=== PATIENT | female | born 1980 | race Caucasian/White ===

== ENCOUNTER → 2021-06-06 10:21 | Outpatient (CLI) | payer OTHER, SELFPAY ==
[2021-06-06 10:42] LABS: Add Manual Diff / Slide Review NO; Basophils Absolute Auto 100 /uL (0-100); Basophils Percent Auto 2.6 % (0-2); Eosinophils Absolute Auto 100 /uL (0-450); Eosinophils Percent Auto 1.4 % (2-4); Hematocrit 36.4 % (36-46); Hemoglobin 12.2 g/dL (12.0-16.0); Lymphocytes Absolute Auto 1600 /uL (1100-4500); Mean Corpuscular HGB Conc 33.5 % (30-36); Mean Corpuscular Hemoglobin 29.1 PG (26-34); Mean Corpuscular Volume 86.7 fL (80-100); Monocytes Absolute Auto 200 /uL (0-900); Monocytes Percent Auto 6.2 % (3-14); Neutrophils Absolute Auto 1700 /uL (1500-7000); Neutrophils Percent Auto 45.8 % (50-75); Platelet Count 221 X10^3/uL (150-400); Red Cell Distribution Width 13.6 % (11.6-14.8); White Blood Cell Count 3.7 X10^3/uL (4.5-11.0)
[2021-06-06 11:01] LABS: Alanine Aminotransferase 13 IU/L (<35); Albumin 4.5 g/dL (3.5-5.0); Albumin Globulin Ratio 1.4 (1.0-2.8); Alkaline Phosphatase 46 U/L (38-126); Aspartate Aminotransferase 22 IU/L (14-36); BUN Creatinine Ratio 26.4 (6-22); Bilirubin Total 1.8 mg/dL (0.2-1.3); Blood Urea Nitrogen 19 mg/dL (7-17); Calcium 9.1 mg/dL (8.4-10.2); Carbon Dioxide 29 mmol/L (22-32); Chloride 103 mmol/L (98-107); Cholesterol 222 mg/dL (140-199); Estimated Glomerular Filt Rate > 60.0 mL/min (>60); Globulin 3.3 g/dL (1.7-4.1); Glucose 99 mg/dL (70-100); HEMOLYSIS < 15 (0-50); Sodium 140 mmol/L (137-145); Total Protein 7.8 g/dL (6.3-8.2); Triglycerides 53 mg/dL (35-150)
[2021-06-06 11:09] LABS: HDL Cholesterol 113 mg/dL (40-60); LDL Cholesterol Calculated 98 mg/dL (<100)
[2021-06-06 11:23] LABS: TSH w/ Reflex to FT4 2.82 uIU/mL (0.47-4.68)
== END ==
PROVIDERS: PCP Family Medicine; Referring Provider Family Medicine; Visit Provider Family Medicine
DX: E78.5 Hyperlipidemia, unspecified (principal); D64.9 Anemia, unspecified; R53.83 Other fatigue
CPT/HCPCS: 36415; 80053; 80061; 84443; 85025

== ENCOUNTER 2021-08-04 19:11 | Emergency (ER) | payer SELFPAY ==
--- NOTE | 2021-08-04 19:37 | ED.GENADULT ---
HPI - General Adult General Chief complaint: Recheck/Abnormal Lab/Rx Stated complaint: TESTED FOR BLOOD WORK POKED BY NEEDLE WITH NURSE Time Seen by Provider: 08/04/21 19:16 Source: patient Mode of arrival: Ambulatory Limitations: no limitations History of Present Illness HPI narrative: This is a 41-year-old female who was the source patient for a needle that had a blood exposure at a dental office earlier today. The office called and sent patient here for source testing. Patient said she had testing a month ago was negative at that time. She is agreeable to testing today. She defers waiting for her results at this moment and we discussed that some of them will be back today some will take several days to week to result. We did confirm her phone number for follow-up and encouraged her to also call here if she would like for her results. Related Data Home Medications Medication Instructions Recorded Confirmed multivitamin 1 tab PO DAILY 06/06/21 06/06/21 Allergies Allergy/AdvReac Type Severity Reaction Status Date / Time No Known Drug Allergies Allergy Verified 06/06/21 09:48 Review of Systems Review of Systems ROS Unobtainable: All systems reviewed & are unremarkable except as noted in HPI and below Patient History Medical History Acne Anemia, unspecified Fatigue Scoliosis (~1991) Surgical History Anesthesia History of breast lump removal (~2006) Family History Mother Hypertension Grandmother Cancer Social History Smoking Status: Never smoker Smoking Status: Never smoker Exam Narrative Exam Narrative: GENERAL: Alert and oriented x three, female distress. HEENT: Head normocephalic, atraumatic, EOMI, pupils reactive, face symmetric, moist mucous membranes NECK: Supple, full range of motion EXTREMITIES: Normal range of motion, normal gait. NEUROLOGICAL: Cranial nerves II through XII grossly intact. Moving all extremities SKIN: Warm, dry, no petechiae, no rashes or lesions. Course Orders Ordered: ED Orders 08/04/21 19:16 Alanine Aminotransferase Stat HIV 1 & 2 Ab/Ag 4th Gen Combo Stat Hep C Virus Ab w/Reflex Quant Stat 08/04/21 19:19 HIV 1/2 QUAL RNA Stat Medical Decision Making Lab Data Labs: Lab Results 08/04/21 08/04/21 08/04/21 Range/Units 19:40 19:40 19:40 ALT 14 (<35) IU/L Hep Bs Antibody Reactive (.) Hepatitis C Antibody Negative (NEGATIVE) s/c HIV-1 RNA (PCR) (Non Reactive) HIV 1&2 Ab/P24 Ag 4thGn Negative (NEGATIVE) HIV-2 RNA Qual (RT-PCR) (Non Reactive) 08/04/21 Range/Units 19:40 ALT (<35) IU/L Hep Bs Antibody (.) Hepatitis C Antibody (NEGATIVE) s/c HIV-1 RNA (PCR) Non reactive (Non Reactive) HIV 1&2 Ab/P24 Ag 4thGn (NEGATIVE) HIV-2 RNA Qual (RT-PCR) Non reactive (Non Reactive) MDM Narrative Medical decision making narrative: This is a 41-year-old female presents for exposure panel testing as the source patient from an outside dental office. Discharge Plan Departure Patient Disposition: Home Clinical Impression: Patient requested test Activity Restrictions/Additional Instructions: Thank you for presenting today for blood draw as a source patient for blood exposure. Your labs are currently pending. If positive you will be contacted or you can call in the next 48 hours for final results. Please return for new or concerning findings. Prescriptions: No Action multivitamin Tablet 1 tab PO DAILY Referrals: Renuka Lai MD [Primary Care Provider] - Visit Report Forms: Patient Portal/API
[2021-08-04 20:05] LABS: Alanine Aminotransferase 14 IU/L (<35)
[2021-08-04 21:25] LABS: HIV 1 & 2 Ab/Ag 4th Gen Combo NEGATIVE (NEGATIVE); Hep C Virus Ab w/Reflex Quant NEGATIVE s/c (NEGATIVE)
[2021-08-06 09:01] LABS: Hepatitis B Surf Ab Qualitativ Reactive (.)
[2021-08-07 12:13] LABS: HIV 1 RNA Non Reactive (Non Reactive); HIV 2 RNA Non Reactive (Non Reactive)
== END 2021-08-04 19:48 | disposition home or self-care (01) ==
PROVIDERS: Emergency Provider Emergency Medicine; PCP Family Medicine
DX: Z77.21 Contact with and (suspected) exposure to potentially hazardous body fluids (principal); W46.1XXA Contact with contaminated hypodermic needle, initial encounter; Y92.531 Health care provider office as the place of occurrence of the external cause
CPT/HCPCS: 36415; 84460; 86706; 86803; 87389; 87535; 87538; 99281; 99282

== ENCOUNTER → 2023-02-08 11:54 | Outpatient (CLI) | payer OTHER, SELFPAY ==
--- NOTE | 2023-02-08 | DI.MG.S_ITS ---
BILATERAL DIGITAL SCREENING MAMMOGRAM 3D/2D WITH CAD: 02/08/2023 CLINICAL: Routine screening. Baseline exam. No prior exams were available for comparison. Both breasts are heterogeneously dense, which may obscure small masses (category c / 51-75% glandular tissue). Current study was also evaluated with a Computer Aided Detection (CAD) system. The left breast has post-operative findings. There are grouped calcifications in the right breast at 6 o'clock posterior depth. No other significant masses, calcifications, or other findings are seen in either breast. IMPRESSION: INCOMPLETE: NEEDS ADDITIONAL IMAGING EVALUATION The grouped calcifications in the right breast are indeterminate. Additional views are recommended. Based on the Tyrer Cuzick model (a risk assessment model) the patient's lifetime risk is 15.2% and her 10 year risk is 1.9%. According to the ACR, ACS, and NCCN guidelines, an annual breast MRI exam along with mammogram is recommended if the patient's lifetime risk is 20% or greater. This exam was interpreted at Station ID: [id number]. NOTE: For mammograms, a report in lay terms will be sent to the patient. Approximately 15% of breast malignancies will not be visualized mammographically. In the management of a palpable breast mass, a negative mammogram must not discourage biopsy of a clinically suspicious lesion. Electronically Signed By: Gamaliel Brantley M.D. lc/:02/08/2023 13:50:39 letter sent: Additional Imaging Needed ACR BI-RADS Category 0: Incomplete 3340F
== END ==
PROVIDERS: PCP Family Medicine; Referring Provider Family Medicine; Visit Provider Family Medicine
DX: Z12.31 Encounter for screening mammogram for malignant neoplasm of breast (principal)
CPT/HCPCS: 77063; 77067

== ENCOUNTER → 2023-02-09 09:48 | Outpatient (CLI) | payer OTHER, SELFPAY ==
[2023-02-09 10:50] LABS: Influenza A - CEPHEID Flu A NEGATIVE (NEGATIVE); Influenza B - CEPHEID Flu B NEGATIVE (NEGATIVE); Respiratory Syncytial Virus Negative (Negative)
[2023-02-09 11:01] LABS: COVID-19 CEPHEID 4-PLEX PCR Negative (Negative)
== END ==
PROVIDERS: PCP Family Medicine; Visit Provider Physician Assistant
DX: R05.1 Acute cough (principal)
CPT/HCPCS: 0241U

== ENCOUNTER → 2023-02-25 08:50 | Outpatient (CLI) | payer OTHER, SELFPAY ==
--- NOTE | 2023-02-25 | DI.MG.S_ITS ---
UNILATERAL RIGHT DIGITAL DIAGNOSTIC MAMMOGRAM 3D/2D WITH ADDITIONAL VIEWS: 02/25/2023 CLINICAL: Additional evaluation requested from prior study. Comparison is made to exam dated: 02/08/2023 mammogram - [facility]. The right breast is extremely dense, which lowers the sensitivity of mammography (category d />75% glandular tissue). There are 0.5 cm grouped coarse heterogeneous calcifications in the right breast at 6 o'clock middle depth. No other significant masses or calcifications are seen in the breast. IMPRESSION: SUSPICIOUS OF MALIGNANCY The grouped coarse heterogeneous calcifications in the right breast have a differential diagnosis of a degenerating fibroadenoma and are at a low suspicion for malignancy. A stereotactic biopsy is recommended. Exam findings were discussed with the patient by Dr. Reese. Based on Tyrer-Cuzick model (a risk assessment model), the patient's lifetime risk is 22.8% and her 10 year risk is 3.0%. If a patient has an elevated risk, a more comprehensive evaluation should be considered and/or a referral to a genetic counselor. The [employer], [employer], and NCCN Guidelines advise the consideration of Breast MRI as an adjunct to screening mammography in patients whose Lifetime risk to develop breast cancer is 20% or higher. This exam was interpreted at Station ID: [id number]. NOTE: For mammograms, a report in lay terms will be sent to the patient. Approximately 15% of breast malignancies will not be visualized mammographically. In the management of a palpable breast mass, a negative mammogram must not discourage biopsy of a clinically suspicious lesion. Electronically Signed By: Jin Mclaughlin M.D. [facility] [place]/:02/25/2023 09:29:28 letter sent: Biopsy Required ACR BI-RADS Category 4a: Suspicious abnormality - low suspicion for malignancy [id number]
== END ==
PROVIDERS: PCP Family Medicine; Referring Provider Family Medicine; Visit Provider Family Medicine
DX: R92.8 Other abnormal and inconclusive findings on diagnostic imaging of breast (principal); R92.1 Mammographic calcification found on diagnostic imaging of breast; R92.341 Mammographic extreme density, right breast
CPT/HCPCS: 77065; G0279

== ENCOUNTER → 2023-03-25 09:52 | Outpatient (CLI) | payer OTHER, SELFPAY ==
--- NOTE | 2023-03-25 09:54 | DI.RAD.S_ITS ---
PROCEDURE: XR KNEE LT 3V INDICATIONS: sharp pain to kneecap x 1 mo TECHNIQUE: 3 views of the knee were acquired. COMPARISON: None. FINDINGS: Bones: No fractures or dislocations. No suspicious bony lesions. Soft tissues: Small suprapatellar joint effusion seen. No suspicious soft tissue calcifications. IMPRESSION: Small suprapatellar joint effusion. Dictated by: Jorge Louis M.D. on 03/25/2023 at 15:35 Approved by: Jorge Louis M.D. on 03/25/2023 at 15:36
== END ==
LOC: RAD 09:53
PROVIDERS: PCP Family Medicine; Referring Provider Physician Assistant; Visit Provider Physician Assistant
DX: M25.562 Pain in left knee (principal); M25.462 Effusion, left knee
CPT/HCPCS: 73562

== ENCOUNTER → 2023-06-07 09:18 | Outpatient (CLI) | payer OTHER, SELFPAY ==
--- NOTE | 2023-06-07 10:02 | DI.MRI.S_ITS ---
PROCEDURE: MR KNEE LT WO/W CON INDICATIONS: Other specified soft tissue disorders TECHNIQUE: Noncontrast sagittal PD fast spin echo and T2 fast spin echo with fat saturation, sagittal 3-D FLASH with fat saturation; coronal T1 spin echo and PD fast spin echo with fat saturation, and axial T1 spin echo and PD fast spin echo with fat saturation through the knee. Post-contrast axial, coronal, and sagittal T1 spin echo with fat saturation through the knee. COMPARISON: [facility], CR, XR KNEE LT 3V, 03/25/2023, 9:56. FINDINGS: Image quality: Excellent. Anterior cruciate ligament: Intact. Posterior cruciate ligament: Intact. Medial collateral ligament: Intact. Lateral collateral ligament: Intact. Medial meniscus: Intact. Lateral meniscus: Intact. Medial and lateral tendons: The semimembranosus tendon insertions appear intact. Visualized portions of the pes anserinus tendons appear normal. The popliteus tendon is intact. Iliotibial band appears normal. Anterior structures: Mild delta. The distal quadriceps tendon is intact. 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 The tibial tubercle-trochlear groove distance is within normal limits. Mild edema and enhancement are seen at the superolateral aspect of the infrapatellar fat pad, which can be seen in the setting of lateral femoral condyle-patellar tendon friction syndrome. These findings are seen adjacent to the skin marker indicating the clinical area of concern. Bones and cartilage: No bone marrow contusions or fractures. Medial femorotibial cartilage: No focal cartilage defect. Lateral femorotibial cartilage: No focal cartilage defect. Patellofemoral cartilage: No focal cartilage defect. Soft tissues: No enhancing soft tissue mass. There is physiologic knee joint fluid. Trace medial popliteal cyst. The musculature surrounding the knee is normal in bulk. IMPRESSION: 1. Mild edema is seen at the superolateral aspect of the infrapatellar fat pad, which can be seen in the setting of lateral femoral condyle-patellar tendon friction syndrome. 2. Mild patella talat. 3. Congenitally shallow trochlear groove with lateral patellar tilting but no patellar subluxation. 4. Cruciate and collateral ligaments are intact. No meniscal tear or focal cartilage defect. No acute trabecular bone injury. Approved by: Gerald Gotti M.D. on 06/07/2023 at 13:04
== END ==
LOC: MRI 09:19
PROVIDERS: PCP Family Medicine; Referring Provider Orthopaedic Surgery; Visit Provider Orthopaedic Surgery
DX: M79.89 Other specified soft tissue disorders (principal); M22.8X1 Other disorders of patella, right knee
CPT/HCPCS: 73723; A9579

== ENCOUNTER → 2024-11-17 11:06 | Outpatient (CLI) | payer OTHER, SELFPAY ==
--- NOTE | 2024-11-17 11:07 | DI.MG.S_ITS ---
MM screening mammo BI: 11/17/2024. BI-RADS: 2 CLINICAL: 44-year old female for bilateral screening mammogram. Tyrer-Cuzick lifetime risk of 20.4%. No personal or first-degree family history of breast cancer. The patient had prior bilateral breast biopsies. PRIOR EXAMS 02/25/2023, 02/08/2023. MAMMOGRAPHY TECHNIQUE: 2D and 3D (tomosynthesis) digital mammographic views obtained, with additional images as needed for full coverage. Current study was also evaluated with a Computer Aided Detection (CAD) system. DENSITY D. The breasts are extremely dense, which lowers the sensitivity of mammography. MAMMOGRAPHY FINDINGS Right: Biopsy marker present on the right. There are no suspicious masses, calcifications, or other findings in the breast. Left: No suspicious mass, asymmetry, microcalcification, or other abnormality seen. IMPRESSION: Right * No evidence of malignancy with benign findings. Left * No evidence of malignancy. RECOMMENDATIONS Bilateral * According to the Tyrer-Cuzick Risk Assessment Model, based on the information provided your patient has a greater than 20% lifetime risk for developing breast cancer. Consider supplemental screening with breast MRI and participation in a high risk screening program. * Annual screening mammography. OVERALL ASSESSMENT CATEGORY BI-RADS-2: Benign. The [employer] recommends annual screening mammography beginning at age 40 for women with average risk of breast cancer. ELECTRONICALLY SIGNED: Shy Albert M.D. on 11/17/2024 at 09:24:36 PM PT Interpreting Station ID: [id number]
== END ==
PROVIDERS: PCP Family Medicine; Referring Provider Family Medicine; Visit Provider Family Medicine
DX: Z12.31 Encounter for screening mammogram for malignant neoplasm of breast (principal); R92.343 Mammographic extreme density, bilateral breasts
CPT/HCPCS: 77063; 77067

== ENCOUNTER 2024-11-30 13:36 | Emergency (ER) | payer OTHER, SELFPAY ==
[2024-11-30 13:39] VITALS: BP 120/60; PULSE 76; RESP 18; TEMP 36.8; O2SAT 100; BMI 17.7
--- NOTE | 2024-11-30 13:47 | DI.RAD.S_ITS ---
PROCEDURE: XR ANKLE LT MIN 3V INDICATIONS: fall/pain TECHNIQUE: 3 views of the ankle were acquired. COMPARISON: None. FINDINGS: Bones: No fractures or dislocations. Ankle mortise is normally aligned. No suspicious bony lesions. Soft tissues: No tibiotalar joint effusion. Achilles tendon appears normal. IMPRESSION: No visualized acute fracture or dislocation. However, if clinical concern and/or pain persist, short interval imaging followup in 7-10 days is recommended, as occult injury cannot be definitively excluded. Dictated by: Elayne Pretty M.D. on 11/30/2024 at 15:01 Approved by: Elayne Pretty M.D. on 11/30/2024 at 15:01
--- NOTE | 2024-11-30 13:47 | DI.RAD.S_ITS ---
PROCEDURE: XR KNEE RT 3V INDICATIONS: fall/pain TECHNIQUE: 3 views of the knee were acquired. COMPARISON: [facility], CR, XR KNEE LT 3V, 03/25/2023, 9:56. FINDINGS: Bones: No fractures or dislocations. No suspicious bony lesions. Soft tissues: Moderate joint effusion. No suspicious soft tissue calcifications. IMPRESSION: No visualized acute fracture or dislocation. However, if clinical concern and/or pain persist, short interval imaging followup in 7-10 days is recommended, as occult injury cannot be definitively excluded. Dictated by: Elayne Pretty M.D. on 11/30/2024 at 15:00 Approved by: Elayne Pretty M.D. on 11/30/2024 at 15:00
--- NOTE | 2024-11-30 14:10 | ED_ITS ---
HPI - Extremity Injury (Lower) General Chief Complaint: Extremity Injury, Lower Stated Complaint: trip and fell ankle pain Time Seen by Provider: 11/30/24 14:09 Source: patient Mode of arrival: Wheelchair History of Present Illness HPI Narrative: This is a 44-year-old female presents emergency department due to a mechanical ground level fall just prior to arrival where she twisted her left ankle and landed on her right knee. She states that she was some pain with range motion of the left ankle primarily. Denies any numbness. Did not hit her head or injure any other part of her body. Related Data Home Medications ?Medication ?Instructions ?Recorded ?Confirmed multivitamin 1 tab PO DAILY 06/06/2105/30 fluticasone propionate 50 1 spray intranasal BID PRN 0 03/25/23 06/10/23 mcg/actuation nasal spray,suspension (Flonase Allergy Relief) Previous Rx's ?Medication ?Instructions ?Recorded naproxen 500 mg tablet 500 mg PO BID #30 tabs 02/09 Allergies Allergy/AdvReac Type Severity Reaction Status Date / Time No Known Drug Allergies Allergy Verified 06/10/23 10:46 Review of Systems Review of Systems Narrative: GENERAL: Denies chills, fatigue, malaise, fever, sweats. HEENT: Denies sinus pain, ear pain, sore throat, difficulty swallowing, dizziness. RESPIRATORY: Denies dyspnea, cough, wheezing, hemoptysis, sputum. CARDIOVASCULAR: Denies chest pain, palpitations, orthopnea, edema, GASTROINTESTINAL: Denies nausea, vomiting, abdominal pain, diarrhea, constipation, melena. : Denies dysuria, frequency, incontinence, hematuria, urinary retention. MUSCULOSKELETAL: Left ankle and right knee pain SKIN: Denies rash, skin lesions, or other NEUROLOGIC: Denies weakness, headache, numbness, change in speech, confusion, seizures, incoordination. PSYCHIATRIC: No concerning psychosocial issues. 12 point review of systems is negative except for those stated above Patient History Medical History Acne Anemia, unspecified Fatigue Scoliosis (~1991) Surgical History Anesthesia History of breast lump removal (~2006) Family History Mother Hypertension Grandmother Cancer Smoking Status: Never smoker Exam Narrative Exam Narrative: GENERAL: Well-developed patient, in mild distress. HEAD: Atraumatic. Normocephalic. EYES: Pupils equal round and reactive. Extraocular motions intact. No scleral icterus. No injection or drainage. ENT: Nose without bleeding, purulent drainage. Throat without erythema, tonsillar hypertrophy or exudate. Airway patent. NECK: Trachea midline. Non tender EXTREMITIES: Mild tenderness to palpation to the lateral malleolus of the left ankle. Some pain with range of motion. Superficial abrasion to the right knee. NEURO: AOx3. SKIN: No rash or erythema of visible areas Initial Vital Signs Initial Vital Signs: Vital Signs Temperature 98.3 F 11/30/24 13:39 Pulse Rate 76 11/30/24 13:39 Respiratory Rate 18 11/30/24 13:39 Blood Pressure 120/60 11/30/24 13:39 Pulse Oximetry 100 11/30/24 13:39 Oxygen Delivery Method Room Air 11/30/24 13:39 Course Orders Ordered: ED Orders 11/30/24 13:47 XR ankle LT min 3V Stat XR knee RT 3V Stat 11/30/24 14:20 XR foot LT min 3V Stat Vital Signs Vital signs: Vital Signs - 8 hr 11/30/24 13:39 Temperature 98.3 F Pulse Rate 76 Respiratory Rate 18 Blood Pressure 120/60 Pulse Oximetry 100 Oxygen Delivery Method Room Air MDM - Extremity Injury (Lower) Imaging Data Extremity x-ray #1: Radiologist's Impression: [address] [address] XRay Report Signed Patient: Rachna Marquez MR#: [id number] : 1980 Acct:[id number] Age/Sex: 44 / F Date of Service: 11/30/24 Loc: ED Accession Number: [id number] Procedure: XR ankle LT min 3V Ordering Provider: Selma Mays MD PROCEDURE: XR ANKLE LT MIN 3V INDICATIONS: fall/pain TECHNIQUE: 3 views of the ankle were acquired. COMPARISON: None. FINDINGS: Bones: No fractures or dislocations. Ankle mortise is normally aligned. No suspicious bony lesions. Soft tissues: No tibiotalar joint effusion. Achilles tendon appears normal. IMPRESSION: No visualized acute fracture or dislocation. However, if clinical concern and/or pain persist, short interval imaging followup in 7-10 days is recommended, as occult injury cannot be definitively excluded. Dictated by: Elayne Pretty M.D. on 11/30/2024 at 15:01 Approved by: Elayne Pretty M.D. on 11/30/2024 at 15:01 Extremity x-ray #2: Radiologist's Impression: [address] [address] XRay Report Signed Patient: Rachna Marquez MR#: [id number] : 1980 Acct:[id number] Age/Sex: 44 / F Date of Service: 11/30/24 Loc: ED Accession Number: [id number] Procedure: XR knee RT 3V Ordering Provider: Selma Mays MD PROCEDURE: XR KNEE RT 3V INDICATIONS: fall/pain TECHNIQUE: 3 views of the knee were acquired. COMPARISON: [facility], , XR KNEE LT 3V, 03/25/2023, 9:56. FINDINGS: Bones: No fractures or dislocations. No suspicious bony lesions. Soft tissues: Moderate joint effusion. No suspicious soft tissue calcifications. IMPRESSION: No visualized acute fracture or dislocation. However, if clinical concern and/or pain persist, short interval imaging followup in 7-10 days is recommended, as occult injury cannot be definitively excluded. Dictated by: Elayne Pretty M.D. on 11/30/2024 at 15:00 Approved by: Elayne Pretty M.D. on 11/30/2024 at 15:00 Extremity x-ray #3: Radiologist's Impression: [address] [address] XRay Report Signed Patient: Rachna Marquez MR#: [id number] : 1980 Acct:[id number] Age/Sex: 44 / F Date of Service: 11/30/24 Loc: ED Accession Number: [id number] Procedure: XR foot LT min 3V Ordering Provider: Rashi Ahn PA-C PROCEDURE: XR FOOT LT MIN 3V INDICATIONS: Foot pain after fall TECHNIQUE: 3 views of the foot were acquired. COMPARISON: None. FINDINGS: Bones: No fractures or dislocations. No suspicious bony lesions. Soft tissues: No tibiotalar joint effusion. Achilles tendon appears normal. IMPRESSION: No visualized acute fracture or dislocation. However, if clinical concern and/or pain persist, short interval imaging followup in 7-10 days is recommended, as occult injury cannot be definitively excluded. Dictated by: Elayne Pretty M.D. on 11/30/2024 at 15:53 Approved by: Elayne Pretty M.D. on 11/30/2024 at 15:53 MDM Narrative Medical decision making narrative: ED course: 42-year-old female presenting to the emergency department due to mechanical ground level fall. X-rays of the ankle and knee were negative. She had have a slight abrasion but declined tetanus. She was neurovascularly intact throughout. Recommended supportive care for soft tissue injuries CC: Left ankle pain Complicating co-morbidities: None Data collected from: Previous notes Medical records reviewed: History of anemia, fatigue Differential considered, but not limited to: Sprain, fracture Exam documented above, pertinent findings include: Some tenderness to palpation, neurovascularly intact throughout Lab Test results independently reviewed as above. Pertinent findings: None obtained Imaging studies independently reviewed: X-rays unremarkable Scores Used: None MIPS Elements: None Consultations: None Treatments: None Re-evaluations: None Discussion: Discussed plan with the patient was comfortable with the plan Diagnosis: Ankle sprain Disposition: see below, along with detailed discharge instructions that have been reviewed with patient as well as indications for ED re-evaluation and additional outpatient follow up Discharge Plan Departure Patient Disposition: Home Clinical Impression: Ankle sprain Qualifiers: Encounter type: initial encounter Involved ligament of ankle: unspecified ligament Laterality: left Qualified Code(s): S93.402A - Sprain of unspecified ligament of left ankle, initial encounter Activity Restrictions/Additional Instructions: Thank you for coming to the [facility] Emergency Department today. You knee x-ray and ankle x-ray were negative. I will call you with the results with the foot x-rays soon as it was available. Please treat this as he was sprain with rest, ice, elevation and ibuprofen as needed for pain. Please return to the emergency department if you develop any significant new or worsening pain, or any other concerning signs or symptoms. I hope you feel better soon. Please follow up with your primary care provider within a week if your symptoms continue. If you do not have a primary care provider please contact the [facility] Resource line at [phone]. They will ask some questions about your medical history and help you get set up with a provider in the community. Prescriptions: No Action naproxen 500 mg tablet 500 mg PO BID Qty: 30 0RF fluticasone propionate [Flonase Allergy Relief] 50 mcg/actuation spray,suspension 1 spray intranasal BID PRN Rx Instructions: administer into each nostril multivitamin Tablet 1 tab PO DAILY Referrals: Maru Bobo DO [Primary Care Provider, Medical] Stand Alone Forms: Patient Portal/API
--- NOTE | 2024-11-30 14:20 | DI.RAD.S_ITS ---
PROCEDURE: XR FOOT LT MIN 3V INDICATIONS: Foot pain after fall TECHNIQUE: 3 views of the foot were acquired. COMPARISON: None. FINDINGS: Bones: No fractures or dislocations. No suspicious bony lesions. Soft tissues: No tibiotalar joint effusion. Achilles tendon appears normal. IMPRESSION: No visualized acute fracture or dislocation. However, if clinical concern and/or pain persist, short interval imaging followup in 7-10 days is recommended, as occult injury cannot be definitively excluded. Dictated by: Elayne Pretty M.D. on 11/30/2024 at 15:53 Approved by: Elayne Pretty M.D. on 11/30/2024 at 15:53
[2024-11-30 15:50] VITALS: BP 118/65; PULSE 72; O2SAT 100
== END 2024-11-30 15:50 | disposition home or self-care (01) ==
PROVIDERS: Emergency Provider Physician Assistant Medical; PCP Family Medicine
DX: S93.402A Sprain of unspecified ligament of left ankle, initial encounter (principal); M25.561 Pain in right knee; W18.30XA Fall on same level, unspecified, initial encounter
CPT/HCPCS: 73562; 73610; 73630; 99281; 99283

== ENCOUNTER → 2025-01-12 09:26 | Outpatient (CLI) | payer OTHER, SELFPAY ==
[2025-01-12 09:48] LABS: Add Manual Diff / Slide Review NO; Hematocrit 35.9 % (36-46); Hemoglobin 12.1 g/dL (12.0-16.0); Lymphocytes Absolute Auto 1700 /uL (1100-4500); Mean Corpuscular HGB Conc 33.6 % (30-36); Mean Corpuscular Hemoglobin 29.2 PG (26-34); Mean Corpuscular Volume 86.9 fL (80-100); Platelet Count 196 X10^3/uL (150-400)
[2025-01-12 10:12] LABS: Alanine Aminotransferase 10 IU/L (<35); Albumin 4.3 g/dL (3.5-5.0); Albumin Globulin Ratio 1.3 (1.0-2.8); Alkaline Phosphatase 50 U/L (38-126); Blood Urea Nitrogen 18 mg/dL (7-17); Calcium 9.2 mg/dL (8.4-10.2); Carbon Dioxide 26 mmol/L (22-32); Chloride 107 mmol/L (98-107); Cholesterol 215 mg/dL (140-199); Estimated Glomerular Filt Rate > 60 mL/min (>60); Globulin 3.2 g/dL (1.7-4.1); Glucose 96 mg/dL (70-99); HDL Cholesterol 107 mg/dL (40-60); HEMOLYSIS < 15 (0-50); Potassium 4.0 mmol/L (3.4-5.1); Sodium 139 mmol/L (137-145); Total Protein 7.5 g/dL (6.3-8.2); Triglycerides 50 mg/dL (35-150)
[2025-01-12 10:28] LABS: Vitamin D 25 Hydroxy (D3) 25.3 ng/mL (30.0-100.0)
[2025-01-12 10:45] LABS: Ferritin 17 ng/mL (6-137)
[2025-01-13 07:09] LABS: CRP, High Sensitivity 0.27 mg/L (0.00-3.00)
== END ==
PROVIDERS: PCP Family Medicine; Referring Provider Family Medicine; Visit Provider Family Medicine
DX: Z13.220 Encounter for screening for lipoid disorders (principal); E55.9 Vitamin D deficiency, unspecified; Z86.2 Personal history of diseases of the blood and blood-forming organs and certain disorders involving the immune mechanism
CPT/HCPCS: 36415; 80053; 80061; 82306; 82728; 85025; 86140